=== PATIENT | female | born 1955 | race African-American/Black ===

== ENCOUNTER 2020-11-26 19:38 | Inpatient (IN) | payer MEDICAID ==
[~2020-11-26] VITALS: Ht 162.6 cm; Wt 147.2 kg
[~2020-11-26 19:38] MED LIST: ASPI-394; CAR3125T; DIAZ10TA; FURO1TAB31; NORVASC; POTA-220
[2020-11-26 20:22] LABS: Basophils # (auto) 0.1 10 ^3/uL (0-0.2); Basophils % (auto) 1.4 % (0.0-2.0); Eosinophils # (auto) 0.2 10 ^3/uL (0-0.8); Eosinophils % (auto) 3.3 % (0.0-7.0); Hematocrit 40.5 % (36.0-46.0); Lymphocytes # (auto) 2.1 10 ^3/uL (0.4-5.4); Lymphocytes % (auto) 30.2 % (10.0-50.0); Mean Corpuscular Hemoglobin 33.4 pg (28.0-32.0); Mean Corpuscular Hgb Conc. 34.6 g/dL (32.0-36.0); Mean Corpuscular Volume 96.6 fL (80.0-100.0); Monocytes # (auto) 0.5 10 ^3/uL (0-1.3); Monocytes % (auto) 7.6 % (0.0-12.0); Neutrophils # (auto) 4.1 10 ^3/uL (1.6-8.6); Neutrophils % (auto) 57.5 % (37.0-80.0); Nucleated Red Blood Cells % 0.1 %; Platelet Count (auto) 243 10^3/uL (140-450); Red Blood Cells 4.19 10^6/uL (4.0-5.20); Red Cell Distribution Width 15.9 % (11.8-14.3); White Blood Cell 7.1 10^3/uL (4.4-10.8)
[2020-11-26 20:32] LABS: Albumin 3.4 g/dL (3.4-5.0); Anion Gap 6 (5-15); Blood Urea Nitrogen 6 mg/dL (7-18); Calcium 8.5 mg/dL (8.5-10.1); Carbon Dioxide 28 mmol/L (21-32); Chloride 108 mmol/L (98-107); Glucose 102 mg/dL (74-106); Magnesium 2.2 mg/dL (1.6-2.6); Potassium 3.7 mmol/L (3.5-5.1); Sodium 142 mmol/L (136-145)
[2020-11-26 20:36] LABS: INR 0.97 (0.9-1.15)
[2020-11-26 20:38] LABS: Alanine Aminotransferase 20 U/L (13-56); Alkaline Phosphatase 90 U/L (45-117); Aspartate Aminotransferase 17 U/L (15-37); BUN/Creatinine Ratio 8.1; Bilirubin, Total 0.3 mg/dL (0.2-1.0); GFR African American 102 mL/min; GFR Non-African American 84 mL/min; Total Protein 7.1 g/dL (6.4-8.2)
[2020-11-26] MEDS ORDERED: FUROSEMIDE 40 MG/4 ML VIAL IV ONE (22:30)
[2020-11-26 23:13] LABS: Urine Bacteria FEW /hpf (None Seen); Urine Blood Negative /uL (Negative); Urine Hyaline Cast FEW /lpf (0 - 2); Urine Mucus FEW (None Seen); Urine WBC 2 /hpf (0 - 5)
[2020-11-26] MEDS ORDERED: FUROSEMIDE 20 MG/2 ML VIAL IV ONE (23:15)
[2020-11-27] MEDS: CARISOPRODOL 350 MG TAB PO PRN ×2 (02:51→11:29)
[2020-11-27 05:07] VITALS: BP 156/78
[2020-11-27] MEDS ORDERED: AML5T PO (05:37)
[2020-11-27] MEDS ORDERED: VARE1TAB PO (05:37)
[2020-11-27] MEDS ORDERED: DICL50TA4 PO (05:37)
[2020-11-27] MEDS ORDERED: OXYB5TAB61 PO (05:37)
[2020-11-27] MEDS ORDERED: ATOR10TA PO (05:37)
[2020-11-27] MEDS ORDERED: NITR0.4S29 SL (05:37)
[2020-11-27] MEDS ORDERED: QUET100T46 PO (05:37)
[2020-11-27 05:55] VITALS: BP 156/78
[2020-11-27] MEDS: FUROSEMIDE 20 MG/2 ML VIAL IV SCH ×2 (05:57→13:22)
[2020-11-27 09:00] VITALS: BP 129/84
[2020-11-27] MEDS ORDERED: ENOXAPARIN SOD 40 MG/0.4 ML SYRINGE SC SCH (10:00)
[2020-11-27] MEDS ORDERED: METOPROLOL TARTRATE 25 MG TAB PO SCH (10:00)
[2020-11-27] MEDS ORDERED: OPTISON 3ml Vial for INJ IV ONE (12:00)
[2020-11-27 13:00] VITALS: BP 154/84
[2020-11-27] MEDS ORDERED: ALBUAER3 IN (15:45)
[2020-11-27] MEDS ORDERED: FURO1TAB31 PO (15:45)
[2020-11-27 16:29] VITALS: BP 121/58
[2020-11-27] MEDS ORDERED: ATORVASTATIN 20 MG TAB PO SCH (22:00)
[2020-11-28] MEDS ORDERED: metOLazone 5 MG TAB PO SCH (10:00)
== END 2020-11-27 18:57 | disposition home health service (06) | DRG 194 ==
LOC: ER 19:46 → TELE 23:58 → TELE-CENTR 11-27 03:48
PROVIDERS: ADMIT Hospitalist; ATTEND Internal Medicine
DX: I11.0 Hypertensive heart disease with heart failure (principal); E66.01 Morbid (severe) obesity due to excess calories; I50.33 Acute on chronic diastolic (congestive) heart failure; Z20.822 Contact with and (suspected) exposure to COVID-19; E78.5 Hyperlipidemia, unspecified; F41.9 Anxiety disorder, unspecified; F32.9 Major depressive disorder, single episode, unspecified; J44.9 Chronic obstructive pulmonary disease, unspecified; Z79.899 Other long term (current) drug therapy; Z87.891 Personal history of nicotine dependence; Z91.19 Patient's noncompliance with other medical treatment and regimen; Z68.43 Body mass index [BMI] 50.0-59.9, adult; Z90.49 Acquired absence of other specified parts of digestive tract
CPT/HCPCS: 36415; 71045; 80053; 81001; 83735; 83880; 84484; 85025; 85610; 87426; 93005; 93306; 96372; 96374; G0378; Q9956

== ENCOUNTER 2021-07-28 19:47 | Inpatient (IN) | payer MEDICAID ==
[~2021-07-28] VITALS: Ht 167.6 cm; Wt 113.0 kg
[~2021-07-28 19:47] MED LIST changes: +ALBUAER3 IN; +AML5T PO; +ATOR10TA PO; +DICL50TA4 PO; -FURO1TAB31; +FURO1TAB31 PO; +NITR0.4S29 SL; +OXYB5TAB61 PO; +QUET100T47 PO; +VARE1TAB PO
[2021-07-29] LABS: Basophils # (auto) 0 10 ^3/uL (0-0.2); Basophils % (auto) 0.5 % (0.0-2.0); Eosinophils # (auto) 0.1 10 ^3/uL (0-0.8); Eosinophils % (auto) 1.7 % (0.0-7.0); Hematocrit 43.3 % (36.0-46.0); Hemoglobin 13.8 g/dL (12.2-16.2); Lymphocytes # (auto) 1.4 10 ^3/uL (0.4-5.4); Lymphocytes % (auto) 23.7 % (10.0-50.0); Mean Corpuscular Hemoglobin 27.8 pg (28.0-32.0); Mean Corpuscular Hgb Conc. 31.9 g/dL (32.0-36.0); Mean Corpuscular Volume 87.3 fL (80.0-100.0); Monocytes # (auto) 0.3 10 ^3/uL (0-1.3); Monocytes % (auto) 5.9 % (0.0-12.0); Neutrophils # (auto) 3.9 10 ^3/uL (1.6-8.6); Neutrophils % (auto) 68.2 % (37.0-80.0); Nucleated Red Blood Cells % 0.4 %; Red Blood Cells 4.96 10^6/uL (4.0-5.20); Red Cell Distribution Width 16.6 % (11.8-14.3); White Blood Cell 5.8 10^3/uL (4.4-10.8)
[2021-07-29 00:21] LABS: BUN/Creatinine Ratio 14.9; Calcium 8.4 mg/dL (8.5-10.1)
[2021-07-29 00:24] LABS: Bilirubin, Total 0.3 mg/dL (0.2-1.0); Total Protein 6.9 g/dL (6.4-8.2)
[2021-07-29 01:17] LABS: Potassium 6.3 mmol/L (3.5-5.1)
[2021-07-29 01:18] LABS: Urine Bacteria MANY /hpf (None Seen); Urine Blood 2+ /uL (Negative); Urine Hyaline Cast MANY /lpf (0 - 2); Urine Mucus FEW (None Seen); Urine Specific Gravity 1.016 (1.001-1.035); Urine WBC 4 /hpf (0 - 5)
[2021-07-29] MEDS ORDERED: ALBUTEROL SULF 2.5 MG/0.5ML(0.5%) NEB SOLN NEB ONE (02:15)
[2021-07-29] MEDS ORDERED: DEXTROSE (50%) 50ML SYRG IV ONE (02:15)
[2021-07-29] MEDS ORDERED: SODIUM BICARBONATE 8.4 % INJ 50ML VIAL IV ONE (02:15)
[2021-07-29] MEDS ORDERED: InsuLIN REG 1unit/0.01ml Soln (100units/ml) IV ONE (02:15)
[2021-07-29] MEDS ORDERED: CALCIUM GLUC 1,000mg/50ml-NS 50 ML IV ONE (02:15)
[2021-07-29] MEDS ORDERED: MORPHINE SULFATE 4 MG/ML SYR/VIAL IV ONE (04:30)
[2021-07-29] MEDS ORDERED: ONDANSETRON HCL 4 MG/2 ML VIAL IV ONE (12:30)
[2021-07-29 12:50] LABS: BUN/Creatinine Ratio 15.3; Calcium 8.4 mg/dL (8.5-10.1); Potassium 4.7 mmol/L (3.5-5.1)
[2021-07-29] MEDS ORDERED: GOLYTELY 4L KIT PO ONE (13:00)
[2021-07-29] MEDS ORDERED: HYDROcodone-ACET 5/325MG TAB PO PRN (13:15)
[2021-07-29] MEDS ORDERED: SODIUM CHLORIDE 0.9% 2,000 ML IV ONE (13:15)
[2021-07-29] MEDS ORDERED: ACETAMINOPHEN 325 MG TAB PO PRN (13:15)
[2021-07-29] MEDS ORDERED: ONDANSETRON HCL 4 MG/2 ML VIAL IV PRN (13:15)
[2021-07-29] MEDS ORDERED: REMDESIVIR PER PHARMACY 0 ML IV SCH (13:30)
[2021-07-29 16:00] LABS: Hematocrit 36.2 % (36.0-46.0); Hemoglobin 11.8 g/dL (12.2-16.2); Mean Corpuscular Hgb Conc. 32.5 g/dL (32.0-36.0); Mean Corpuscular Volume 86.4 fL (80.0-100.0); Red Blood Cells 4.19 10^6/uL (4.0-5.20); Red Cell Distribution Width 16.3 % (11.8-14.3); White Blood Cell 4.9 10^3/uL (4.4-10.8)
[2021-07-29 16:08] LABS: Basophils % (manual) 0 (0.0-2.0); Blast Cells 0; Metamyelocytes % 0; Myelocytes % 0; Promyelocytes % 0; Reactive Lymphocytes 0
[2021-07-29 16:57] LABS: Band Neutrophils % (manual) 4; Eosinophils % (manual) 2 (0-7); Lymphocytes % (manual) 40 (10.0-50.0); Monocytes % (manual) 14 (0-12)
[2021-07-29] MEDS: SODIUM CHLORIDE 0.9% 1,000 ML IV SCH ×2 (17:40→23:15)
[2021-07-29 22:00] VITALS: BP 129/66
[2021-07-29] MEDS: ALBUTEROL SULF HFA 90MCG INH 200DOSE IN SCH (22:56)
[2021-07-30 00:49] VITALS: BP 129/66
[2021-07-30 05:22] VITALS: BP 102/43
[2021-07-30] MEDS: ALBUTEROL SULF HFA 90MCG INH 200DOSE IN SCH ×3 (06:00→19:52)
[2021-07-30] MEDS ORDERED: diphenhdrAMINE HCL 50 MG/1 ML VL ONE (08:45)
[2021-07-30] MEDS ORDERED: SODIUM CHLORIDE LOCK 10 ML ONE (08:47)
[2021-07-30 09:00] VITALS: BP 138/78
[2021-07-30] MEDS ORDERED: cefTRIAXone 1GM/50ML D5W 50 ML IV SCH (09:00)
[2021-07-30] MEDS: SODIUM CHLORIDE 0.9% 1,000 ML IV SCH (09:22)
[2021-07-30] MEDS ORDERED: DexAMETHasone SOD PHOS 10MG/1ML VIAL INJ IV SCH (10:00)
[2021-07-30 13:00] VITALS: BP 138/66
[2021-07-30] MEDS: MIDAZOLAM HCL 5 MG/ML-1ML VIAL ONE ×4 (13:56→14:08)
[2021-07-30] MEDS: fentaNYL CITRATE 100 MCG/2 ML VL ONE ×4 (13:56→14:08)
[2021-07-30 17:00] VITALS: BP 127/72
[2021-07-30] MEDS ORDERED: DEXA6TAB6 PO (18:13)
[2021-07-30] MEDS ORDERED: ALBUAER3 IN (18:13)
[2021-07-30] MEDS ORDERED: PANT40T PO (18:22)
[2021-07-30 21:00] LABS: BUN/Creatinine Ratio 15.8; Calcium 7.9 mg/dL (8.5-10.1); Potassium 4.5 mmol/L (3.5-5.1)
[2021-07-30 22:00] VITALS: BP 128/74
== END 2021-07-30 22:28 | disposition home health service (06) | DRG 244 ==
LOC: EDBD 19:47 → ER 19:51 → UNDOADMIN 07-29 13:07 → TELE 07-29 13:07 → EAST 07-29 13:07 → UNDODISIN 07-29 18:43 → TELE-EAST 07-29 18:56
PROVIDERS: ADMIT Internal Medicine; ATTEND Internal Medicine
PROC: 0DJD8ZZ Inspection of Lower Intestinal Tract, Via Natural or Artificial Opening Endoscopic (ICD-10-PCS; principal; 2021-07-30 13:50)
DX: K57.91 Diverticulosis of intestine, part unspecified, without perforation or abscess with bleeding (principal); J12.82 Pneumonia due to coronavirus disease 2019; J96.11 Chronic respiratory failure with hypoxia; U07.1 COVID-19; K63.3 Ulcer of intestine; J44.0 Chronic obstructive pulmonary disease with (acute) lower respiratory infection; I50.9 Heart failure, unspecified; E11.22 Type 2 diabetes mellitus with diabetic chronic kidney disease; I13.0 Hypertensive heart and chronic kidney disease with heart failure and stage 1 through stage 4 chronic kidney disease, or unspecified chronic kidney disease; E66.01 Morbid (severe) obesity due to excess calories; E78.5 Hyperlipidemia, unspecified; E87.5 Hyperkalemia; K76.0 Fatty (change of) liver, not elsewhere classified; N18.9 Chronic kidney disease, unspecified; R53.81 Other malaise; N39.0 Urinary tract infection, site not specified; Z68.41 Body mass index [BMI] 40.0-44.9, adult; Z79.899 Other long term (current) drug therapy; Z82.49 Family history of ischemic heart disease and other diseases of the circulatory system; Z83.3 Family history of diabetes mellitus; Z87.891 Personal history of nicotine dependence; Z99.81 Dependence on supplemental oxygen
CPT/HCPCS: 36415; 45378; 71045; 74176; 76775; 80048; 80053; 81001; 82150; 82728; 83690; 84484; 85007; 85025; 85027; 85379; 85610; 85730; 86850; 86900; 86901; 87426; 93005; 94640; 94644; 96361; 96365; 96375; 99291; G0378; J0696; J1100; J1815; J2250; J2405